=== PATIENT | female | born 1960 | race Caucasian/White ===

== ENCOUNTER → 2016-07-20 | Outpatient (CLI) | payer MEDICARE, OTHER ==
[2016-07-20 12:36] LABS: C-REACTIVE PROTEIN < 0.5 mg/dL (0.0-0.9)
[2016-07-20 13:02] LABS: URIC ACID 5.1 mg/dL (2.5-6.2)
== END ==
LOC: COL.LAB 11:32
PROVIDERS: Orthopaedic Surgery Sports Medicine
DX: M79.671 Pain in right foot (principal)